=== PATIENT | male | born 1995 | race Caucasian/White ===

== ENCOUNTER 2020-10-28 14:26 | Emergency (ER) | payer OTHER ==
[~2020-10-28] VITALS: Ht 182.9 cm; Wt 89.0 kg
[2020-10-28 15:36] VITALS: BP 126/78
[2020-10-28] MEDS: LIDOCAINE WITH 8.4% SOD BICARB 3 ML DISP.SYRIN. INJ ONE (15:55)
--- NOTE | 2020-10-28 16:30 | RAD ---
EXAM: LEFT HAND 3 VIEWS. HISTORY: Soft tissue foreign body. COMPARISON: None. FINDINGS: A vague density projects over the thenar eminence and second metacarpal and measures 2.2 cm in length and 2 mm in width. No fractures are identified. Alignment is maintained. Joint spaces are maintained. IMPRESSION: 1. 2.2 x 0.2 cm splinter projecting along the volar aspect of the second metacarpal. Electronically signed by: Sepideh Rosenthal MD (10/28/2020 4:28 PM) [facility]
--- NOTE | 2020-10-28 17:04 | PHYS DOC ---
Past Medical History Past Medical History: No Pertinent History Past Surgical History: No Surgical History Smoking Status: Never Smoker Alcohol Use: None General Adult EDM: Chief Complaint: HAND PROBLEM HPI: HPI: Patient is a 25 year old male who presents to the ED today with a splinter in the left hand, patient states he was moving a 2 x 4 and a piece of splinter got into his left hand. Patient is right-handed Review of Systems: Review of Systems: Constitutional: Denies fever or chills. [] Musculoskeletal: Denies back pain or joint pain. [] Integument: Reports splinter in the left hand Neurologic: Denies headache, focal weakness or sensory changes. [] Psychiatric: Denies depression or anxiety. [] Heart Score: C/O Chest Pain: N/A Risk Factors: Risk Factors: DM, Current or recent (<one month) smoker, HTN, HLP, family history of CAD, obesity. Risk Scores: Score 0 - 3: 2.5% MACE over next 6 weeks - Discharge Home Score 4 - 6: 20.3% MACE over next 6 weeks - Admit for Clinical Observation Score 7 - 10: 72.7% MACE over next 6 weeks - Early Invasive Strategies Current Medications: Current Medications Medications (Trade) Dose Ordered Sig/George Start Time Stop Time Status Last Admin Dose Admin Lidocaine HCl (Buffered Lidocaine 1%) 3 ml 1X ONCE 10/28/20 15:45 10/28/20 15:52 DC 10/28/20 15:55 3 ML Allergies: Allergies: Allergies Coded Allergies Type Severity Reaction Last Updated Verified No Known Drug Allergies 10/28/20 No Physical Exam: PE: Constitutional: Well developed, well nourished, no acute distress, non-toxic appearance. [] Skin: Left palmar eminence with a splinter projecting through the skin. Full range of motion to the left hand and fingers. Adequate radial, medial, ulnar sensation to the left hand. +2 left radial pulse. Cap refill less than 2 seconds in left fingers Back: No tenderness, no CVA tenderness. [] Extremities: No tenderness, no cyanosis, no clubbing, ROM intact, no edema. [] Neurologic: Alert and oriented X 3, normal motor function, normal sensory function, no focal deficits noted. [] Psychologic: Affect normal, judgement normal, mood normal. [] Current Patient Data: Vital Signs: Vital Signs Date Time Temp Pulse Resp B/P (MAP) Pulse Ox O2 Delivery O2 Flow Rate FiO2 10/28/20 15:36 98.3 74 20 126/78 (94) 99 Room Air 98.3 EKG: EKG: [] Radiology/Procedures: Radiology/Procedures: []PROCEDURE: HAND LEFT 3V EXAM: LEFT HAND 3 VIEWS. HISTORY: Soft tissue foreign body. COMPARISON: None. FINDINGS: A vague density projects over the thenar eminence and second metacarpal and measures 2.2 cm in length and 2 mm in width. No fractures are identified. Alignment is maintained. Joint spaces are maintained. IMPRESSION: 1. 2.2 x 0.2 cm splinter projecting along the volar aspect of the second meta carpal. Electronically signed by: Sepideh Rosenthal MD (10/28/2020 4:28 PM) [facility] DICTATED and SIGNED BY: HALEY ROSENTHAL MD DATE: 10/28/20 [id number] Indication: Splinter to the left hand Procedure: The area of the foreign body was left palm. Local anesthesia over the foreign body site was 1% of buffered lidocaine. The foreign body was then removed with forceps successfully, after the procedure nonstick dressing was applied today affected area. The patient's tetanus status up-to-date The patient tolerated the procedure well Complications: None Course & Med Decision Making: Course & Med Decision Making Pertinent Labs and Imaging studies reviewed. (See chart for details) This is a 25-year-old male patient who presents to the ED today for splinter removal from the left hand. Splinter was removed successfully by me. Tetanus is up-to-date. Discharged home on cephalexin Dragon Disclaimer: Dragon Disclaimer: This electronic medical record was generated, in whole or in part, using a voice recognition dictation system. Departure Departure Impression: Primary Impression: Splinter of hand Qualified Codes: S60.552A - Superficial foreign body of left hand, initial encounter Disposition: HOME / SELF CARE / HOMELESS Condition: STABLE Referrals: NO PCP (PCP) follow up in 1 week with your doctor Patient Instructions: Wood Splinters Additional Instructions: You had a splinter removed from your left hand. Keep the area clean and dry. If the area is not draining leave it open to air. You can wash the area with r egular soap and water once or twice a day. Complete the prescribed antibiotics. Monitor the area for any worsening condition/infection including increased redness, warmth, yellow drainage from the area and return to the ED if they occur Scripts Cephalexin (CEPHALEXIN) 500 Mg Tablet 1 TAB PO TID, #30 TAB Prov: SANDY BERUMEN APRN 10/28/20 SANDY BERUMEN APRN Oct 28, 2020 17:04
[2020-10-28] MEDS ORDERED: CEPH500T PO (17:07)
== END 2020-10-28 17:13 | disposition home or self-care (01) ==
LOC: ER 14:26
DX: S60.552A Superficial foreign body of left hand, initial encounter (principal); X58.XXXA Exposure to other specified factors, initial encounter; Y93.89 Activity, other specified; Y92.89 Other specified places as the place of occurrence of the external cause; Y99.8 Other external cause status
CPT/HCPCS: 73130; 99284; J3490; 29125; 99283